=== PATIENT | female | born 1950 | race Caucasian/White ===

== ENCOUNTER → 2016-06-29 14:56 | Outpatient (CLI) | payer MEDICARE ==
[2015-10-19 10:39] VITALS: BMI 14.5
[~2016-06-29 14:56] MED LIST: BROVANA15 MCG/2 M INH; COMBIVENT RESPIM4 GM INH; DALIRESP500 MCG PO; FLORANEX / LACT1 TAB PO; FUROSEMIDE20 MG PO; HYDROCODON-ACE1 EAC9 PO; K-DUR20 MEQ PO; KLONOPIN1 MG PO; LEVAQUIN500 MG PO; MUCINEX600 MG PO; NEURONTIN 300300 MG PO; NICODERM C1 PATCH .3 TRANSDERM; PEPCID20 MG PO; PREDNISONE20 MG PO; PULMICORT0.5 MG/21 UPD; SENOKOT-S TABLE1 TAB PO; SINGULAIR10 MG PO; SPIRIVA18 MCG INH
[2016-06-29 15:38] LABS: BASOPHILS 0.5 % (0-2); EOSINOPHILS 2.9 % (0-7); HEMATOCRIT 45.4 % (36.0-48.0); HEMOGLOBIN 14.9 g/dL (12-16); LYMPHOCYTES 41.1 % (15-50); MCH 32.8 pg (26.0-34.0); MCHC 32.8 g/dL (31.0-37.0); MEAN PLATELET VOLUME 9.8 fL (7.4-10.4); MONOCYTES 7.7 % (2-11); NEUTROPHILS 47.8 % (40-80); PLATELET COUNT 212 10x3/uL (130-400); RBC 4.54 10x6/uL (4.00-5.40); RDW 13.6 % (11.5-14.5); WBC 6.1 10x3/uL (4.8-10.8)
[2016-06-29 15:57] LABS: ALBUMIN 3.4 g/dL (3.4-5.0); ALKALINE PHOSPHATASE 134 U/L (46-116); ALT (SGPT) 21 U/L (10-68); BILIRUBIN - TOTAL 0.23 mg/dL (0.2-1.3); CALC OSMOLALITY 276 mosm/kg (275-300); CALCIUM 8.9 mg/dL (8.5-10.1); CARBON DIOXIDE 34.1 mmol/L (21.0-32.0); CHLORIDE - SERUM 101 mmol/L (98-107); CREATININE - SERUM 0.7 mg/dL (0.6-1.3); GLUCOSE 103 mg/dL (74-106); PROTEIN - SERUM 6.8 g/dL (6.4-8.2); SODIUM 140 mmol/L (136-145); UREA NITROGEN 6 mg/dL (7-18); eGFR NON AFRICAN AMERICAN 90 mL/min (90-120)
== END | disposition home or self-care (01) ==
LOC: D.LAB 06-23 08:00
PROVIDERS: Internal Medicine Gastroenterology
DX: K59.09 Other constipation (principal); R63.0 Anorexia; R10.31 Right lower quadrant pain

== ENCOUNTER → 2017-11-01 10:27 | Outpatient (CLI) | payer MEDICARE ==
[2015-10-19 10:39] VITALS: BMI 14.5
== END | disposition home or self-care (01) ==
LOC: D.CT 10:27
DX: R22.1 Localized swelling, mass and lump, neck (principal)

== ENCOUNTER → 2017-12-15 10:33 | Outpatient (CLI) | payer MEDICARE ==
[2015-10-19 10:39] VITALS: BMI 14.5
== END | disposition home or self-care (01) ==
LOC: D.RT 10:33
DX: J44.9 Chronic obstructive pulmonary disease, unspecified (principal)

== ENCOUNTER 2018-01-16 18:59 | Observation (INO) | payer MEDICARE ==
[~2018-01-16] VITALS: Ht 160 cm; Wt 47.1 kg
--- NOTE | ~2018-01-16 | CN ---
PATIENT NAME:KAVIN PATE MEDICAL RECORD: [id number] : 54 LOCATION:D.[facility] D.2120 ADMIT DATE: 01/16/18 ACCOUNT: [id number] CONSULTING PHYSICIAN: DARIANA VALLE MD REFERRING PHYSICIAN: BLANKA LIND MD DATE OF CONSULTATION: 01/17/2018 HISTORY OF PRESENT ILLNESS: A 67-year-old female with known history of coronary artery disease. She has a history of obstructive pulmonary disease as well as previous long-term tobacco use, has been having marked dyspnea with chest tightness and pressure, had a previous negative noninvasive workup; however, symptomatologies continued during this time. Also, has had cardiac arrhythmias in the past with both PACs and PVCs, questionable SVT. We are asked to see her concerning her cardiovascular status. PAST MEDICAL HISTORY: Includes a history of obstructive pulmonary disease. MEDICATIONS: Include Singulair 10 mg p.o. q.h.s., prednisone on a tapering dose, Combivent 1 puff q.i.d., albuterol b.i.d. ALLERGIES: Include PENICILLIN, MUCINEX, BACLOFEN, TIZANIDINE. REVIEW OF SYSTEMS: The patient reports easy bruising but reports no swollen glands. The patient reports no fever, no night sweats, no significant weight gain, no significant weight loss. No significant exercise tolerance. The patient reports no dry eyes, no irritation, no vision change. Patient reports no difficulty hearing and no ear pain. Patient reports no frequent nose bleeds or nose and sinus problems. Patient reports on arm pain on exertion. No shortness of breath while lying down. No history of heart murmur. Patient reports no cough, no wheezing or coughing up blood. Patient reports no abdominal pain, no vomiting. Normal appetite. No diarrhea and not vomiting blood. No nausea and no constipation. Patient reports no incontinence. No difficulty urinating. No hematuria. No increased frequency. Patient reports no muscle aches. No weakness, no arthralgias, no back pain. No swelling of the extremities. Patient reports no abnormal mole, no jaundice, no rashes. Reports no loss of consciousness. No weakness and no numbness. No seizures, dizziness, or headaches. The patient reports no depression, no sleep disturbance, feeling safe in a relationship and no alcohol abuse. Patient reports on fatigue. Reports no runny nose or sinus pressure. No itching, no hives, and no frequent sneezing. PHYSICAL EXAMINATION: GENERAL: Pleasant female in no acute distress, appears stated age. VITAL SIGNS: Blood pressure 102/61, pulse 90 and regular, occasional extrasystole. HEENT: Normocephalic, atraumatic. NECK: No bruits noted, no JVD. HEART: Distant, regular. No gallops noted. LUNGS: Prolonged expiratory phase, few expiratory wheezes. ABDOMEN: Soft, nontender. EXTREMITIES: Pulses are preserved, 2+ with no edema. DIAGNOSTIC DATA: ECG shows nonspecific ST-T changes. IMPRESSION: Difficult to delineate how much of this is angina versus CONSULT REPORT [id number] KAVIN PATE obstructive pulmonary disease; however, given rapid course and history of cardiomyopathy in the past, plan for diagnostic intervention based as above. TRANSINT:[id number] Voice Confirmation ID: [id number] DOCUMENT ID: [id number] DARIANA VALLE MD at 1150 CC: [id number] DICTATION DATE: 01/17/18843 AERIAL SPRAYER: 01/17/18 0947 ADM IN [facility] [address] [id number]
--- NOTE | ~2018-01-16 | OP ---
PATIENT NAME: KAVIN PATE MEDICAL RECORD: [id number] :54 LOCATION:D.M2 D.2120 ADMISSION DATE:01/16/18 SURGEON: DARIANA VALLE MD DATE OF OPERATION: 01/17/2018 PROCEDURE: Left heart catheterization, selective coronary angiography, right femoral artery approach. CATHETERS: A 5-Turkish sheath, 5/4 left and right Geovanna, 5/4 pig. The procedure was well tolerated. The patient returned to the henson, sheath removed FINDINGS: Left ventriculography in 30-degree DAILEY view: Normal wall motion, normal systolic function. CORONARY ANATOMY: LEFT MAIN: Left main is free of disease. LAD: LAD is free of disease in the diagonal system. CIRCUMFLEX: Free of disease in the marginal system. RIGHT CORONARY ARTERY: Dominant artery, gives rise to PDA and it shows diffuse stenosis of about 80%. IMPRESSION: Single-vessel disease involving the right coronary. PLAN: Intervention momentarily. DESCRIPTION OF PROCEDURE: A 5-Turkish sheath was exchanged for a 6-Turkish sheath. Hockey stick one guide catheter provided excellent guide catheter support. A 300-cm Whisper wire was placed across the 80% stenosis ____ down this portion of vessel. Stent deployed was a 3.0 x 18 mm Integrity nondrug-eluting stent up to 14 atmospheres for 45 seconds. Final angiography shows excellent resolution of 80% stenosis, no significant residual. JASMIN flow was 3 throughout the procedure. Integrilin was used during the case. Sheath was closed with ExoSeal device. Plavix was loaded in the lab. TRANSINT:[id number] Voice Confirmation ID: [id number] DOCUMENT ID: [id number] DARIANA VALLE MD at 1407 CC: [id number] DICTATION DATE: 01/17/18 1248 OUTSIDE OPERATOR: 01/17/18 1414 DIS IN 01/19/18 [place] [id number] [place] [id number]
--- NOTE | ~2018-01-16 | HEMODYNAMI ---
PATIENT:KAVIN PATE MEDICAL RECORD: [id number] : 54 LOCATION:[facility] D.2120 ADMISSION DATE: 01/16/18 Generatedon:01/17/201812:43 Patient name: KAVIN PATE Patient #: [id number] SSN: : 1950 Date of study: 01/17/2018 Page: Of Hemodynamic Procedure Report Patient Data Patient Demographics Procedure consent was obtained First Name: KAVIN Gender: Female Last Name: RIO : 1950 [facility] Initial: TEO Age: 67 year(s) Patient #: [id number] Race: Unknown Additional ID: [id number] Contact details Address: [address] [place] [address] State: [place] City: [place] Zip code: [address] Past Medical History Allergies Allergen Reaction Date Comments Reported Penicillins 01/17/2018 Other allergy 01/17/2018 baclofen, mucinex, zanaflex Admission Admission Data Admission Date: 01/16/2018 Admission Time: 20:36 Room #: D.2120 Procedure Procedure Types Cath Procedure Diagnostic Procedure [facility] w/Coronaries Sedation Charges Moderate Sedation up to 15 minutes PCI Procedure Coronary Stent Coronary Stent Initial Procedure Description Procedure Date Procedure Date: 01/17/2018 Procedure Start Time: 12:24 Procedure End Time: 12:42 Procedure Staff Name Function Darian Lowe MD Performing Physician Elaine Barrett RT Monitor Ryann Vaz RN Nurse Richard Merchant RT Scrub Procedure Data Cath Procedure Fluoroscopy Diagnostic fluoroscopy Total fluoroscopy Time: 2.7 time: 2.7 min min Diagnostic fluoroscopy Total fluoroscopy dose: 146 dose: 146 mGy mGy Contrast Material Contrast Material Type Amount (ml) Isovue 300 111 Entry Location Entry Primary Successful Side Size Upsize Upsize Entry Closure Succes sful Closure Location (Fr) 1 (Fr) 2 (Fr) Remarks Device Remarks Femoral Right 5 Fr 6 Fr Exoseal artery Short Estimated blood loss: 10 ml Diagnostic catheters Device Type Used For End Catheter Placement Medtronic Dexterity 5Fr Left Coronary JL 4.0 catheter (NO COST Angiography SUPPLY) Medtronic Dexterity 5Fr Right Coronary 3DRC catheter (NO COST Angiography SUPPLY) Medtronic Dexterity 5Fr LV Angiography Pigtail catheter(NO COST SUPPLY) Procedure Complications No complications Procedure Medications Medication Administration Route Dosage Oxygen etCO2 Nasal cannula 2 l/min Heparin Flush Bag added to field 2 bags (1000units/500ml NS) 0.9% NaCl I.V. 100 ml/hr Lidocaine 2% added to field 20 Fentanyl I.V. 50 mcg Versed I.V. 2 mg Heparin Bolus I.V. 4000 units Integrilin (Bolus I.V. 4 ml 2mg/ml) Versed I.V. 1 mg Plavix P.O. 600 mg Hemodynamics Rest Heart Rate: 82 (bpm) Pressure Samples Time Site Value (mmHg) Purpose Heart Use Rate(bpm) 12:30 LV 96/0,5 EDP 86 12:31 AO 100/46(71) Pullback 88 12:31 LV 93/1,5 Pullback 88 Gradients Valve Time Site 1 Site 2 Mean SEP/DFP Peak To Heart Use (mmHg) (sec/min) Peak Rate (mmHg) (bpm) Aortic 12:30 LV AO 86 Aortic 12:31 LV AO 0 6 0 88 93/1,5 100/46(71) Calculations Valve P-P Mean Valve Index Valve Source Name Gradient Area Flow (cm2) Aortic 0 0 0 0 Snapshots Pre Cath Intra NCS Post Cath Vital Signs Time Heart Resp SPO2 etCO2 NIBP (mmHg) Rhythm Pain Sedation Rate (ipm) (%) (mmHg) Status Level (bpm) 12:13:52 85 18 98 25.5 128/77(95) NSR 0 (11) 10(A) , No pain 12:17:58 78 17 99 31.5 110/74(95) NSR 0 (11) 10(A) , No pain 12:22:00 78 17 100 29.3 124/70(102) NSR 0 (11) 10(A) , No pain 12:26:07 80 16 98 24 110/66(89) NSR 0 (11) 10(A) , No pain 12:30:11 85 21 98 30 106/62(85) NSR 0 (11) 10(A) , No pain 12:34:15 84 26 98 28.5 102/57(81) NSR 0 (11) 10(A) , No pain 12:38:17 88 35 98 29.3 98/59(80) NSR 0 (11) 10(A) , No pain 12:42:18 85 12 98 28.6 93/57(76) NSR 0 (11) 10(A) , No pain Medications Time Medication Route Dose Verified Delivered Reason Notes Effectiveness by by 12:16:07 Oxygen etCO2 2 Darian Ryann Per physician Nasal l/min St Franky Vaz cannula MD MARQUES 12:16:15 Heparin Flush added 2 Darian Ryann used for Bag to bags ChrissyFranky Vaz procedure (1000units/500ml field MD MARQUES NS) 12:16:24 0.9% NaCl I.V. 100 Darian Ryann Per physician ml/hr St Franky Vaz MD, RN 12:20:44 Lidocaine 2% added 20ml Darian Marianoory for local to vial [place] [facility] anesthetic field MD FRASER 12:21:41 Fentanyl I.V. 50 Darian Ryann for sedation mcg [facility] Franky Vaz MD, RN 12:21:50 Versed I.V. 2 mg Darian Ryann for sedation St Franky Vaz MD, RN 12:31:44 Heparin Bolus I.V. 4000 Darian Ryann for verif ied units ChrissyFranky Vaz anticoagulation with Dr. MD MARQUES Vanoss 12:34:15 Integrilin I.V. 4 ml Darian Ryann for waste d (Bolus 2mg/ml) St Franky Vaz anticoagulation 6mL MD MARQUES 12:34:50 Versed I.V. 1 mg Darian Ryann for sedation St Franky Vaz MD, RN 12:39:49 Plavix P.O. 600 Darian Ryann for mg [facility] Franky Vaz antiplatelet MD MARQUES therapy Procedure Log Time Note 11:50:59 Time tracking: Regular hours (M-F 7:00 - 5:00) 11:51:03 Plan of Care:Hemodynamics will remain stable., Cardiac rhythm will remain stable., Comfort level will be maintained., Respiratory function will remain adequate., Patient/ family verbilizes understanding of procedure., Procedure tolerated without complication., Recovers from procedure without complications.. 11:52:21 Richard BLACKMON(R) sent for patient. Start room use. 12:00:24 Patient received from PCU to CCL 3 Alert and oriented. Tansferred to table in Supine position. 12:00:25 Warm blankets applied, and gia hugger turned on for patient comfort. 12:00:25 Correct patient and procedure confirmed by team. 12:00:27 Signed procedure consent form obtained from patient. 12:00:27 ECG and BP/O2 sat monitors applied to patient. 12:00:28 Full Disclosure recording started 12:12:46 Vital chart was started 12:13:01 Rhythm: sinus rhythm 12:13:08 H&P Date Dictated: 01/17/2018 Within 30 days and on chart.. 12:13:09 Pre-procedure instructions explained to patient. 12:13:09 Pre-op teaching completed and patient verbalized understanding. 12:13:12 Family in waiting room. 12:13:14 Patient NPO since Midnight. 12:13:21 Patient allergic to Penicillins 12:13:50 Patient allergic to Other allergybaclofen, mucinex, zanaflex 12:13:53 Is the patient allergic to Iodine/contrast media? No. 12:13:54 Is patient on blood thinner?No 12:13:56 Patient diabetic? No. 12:13:59 Previous problem with sedation/anesthesia? No ? 12:14:00 Snore? No 12:14:01 Sleep apnea? No 12:14:02 Deviated septum? No 12:14:02 Opens mouth fully? Yes 12:14:03 Sticks out tongue? Yes 12:14:06 Airway obstruction? Yes ? 12:14:09 Dentures? No ? 12:14:12 Pre procedure: right dorsailis pedis pulse 2+ Normal; easily identifiable; not easily obliterated 12:14:14 Patient pain scale 0/10 ?. 12:14:26 IV left hand D/C'd due to infiltration. 12:16:07 Oxygen 2 l/min etCO2 Nasal cannula was administered by Ryann Vaz RN; Per physician; 12:16:15 Heparin Flush Bag (1000units/500ml NS) 2 bags added to field was administered by Ryann Vaz RN; used for procedure; 12:16:24 0.9% NaCl 100 ml/hr I.V. was administered by Ryann Vaz RN; Per physician; 12:20:44 Lidocaine 2% 20ml vial added to field was administered by Darian Lowe MD; for local anesthetic; 12:21:02 IV started by Ryann Vaz RN inright forearm with a 22 gauge IV catheter with 0.9% NaCl at KVO. 12:21:08 Baseline sample Acquired. 12:21:13 Lab results completed and on chart. 12:21:16 Right groin area was prepped with chlora-prep and draped in sterile fashion 12::17 Alarms reviewed by R. N. 12::18 Sharps counted by scrub and verified by R.N. 12:: Final Timeout: patient, procedure, and site verified with staff and physician. All members of the team are in agreement. 12:: Right groin site verified by team. 12::23 Physical assessment completed. ASA score P 2 - A patient with mild systemic disease as per Darian Lowe MD. 12::26 Sedation plan: IV Moderate Sedation Medication:Versed, Fentanyl 12::41 Fentanyl 50 mcg I.V. was administered by Ryann Vaz RN; for sedation; 12::50 Versed 2 mg I.V. was administered by Ryann Vaz RN; for sedation; 12:22:03 ACIST Syringe (24936) opened to sterile field. 12:22:03 Bag Decanter (2002S) opened to sterile field. 12:22:04 Medline Cath Pack ([id number]) opened to sterile field. 12:22:04 DIAGNOSTIC WIRE .035 260cm J wire (183729) opened to sterile field. 12:22:05 ACIST Hand Control (80323) opened to sterile field. 12:22:06 ACIST Manifold (11741) opened to sterile field. 12:22:07 Tegaderm 4 x 4 (1626W) opened to sterile field. 12:22:14 SHEATH 5FR [place] (EKN757) opened to sterile field. 12:24:22 Zero performed for pressure channel P1 12:24:24 Procedure started. 12:24:27 Local anesthetic to right femoral artery with Lidocaine 2% by Darian Lowe MD.INITIAL ACCESS ONLY 12:24:39 A 5 Fr sheath was inserted into the Right Femoral artery 12:25:34 A LED Optics Dexterity 5Fr JL 4.0 catheter (NO COST SUPPLY) was advanced over the wire and used for Left Coronary Angiography. 12:27:27 Catheter removed. 12:27:49 A Medtronic Dexterity 5Fr 3DRC catheter (NO COST SUPPLY) was advanced over the wire and used for Right Coronary Angiography. 12:29:18 Catheter removed. 12:30:03 A Medtronic Dexterity 5Fr Pigtail catheter(NO COST SUPPLY) was advanced over the wire and used for LV Angiography. 12:30:24 LV gram done using DAILEY 12:: Injector settings: Ml/sec: 10, Volume: 20, 12:30:28 LV hemodynamics recorded. 12:31:07 EF : 55 % 12:31:37 Catheter removed. 12:31:44 Heparin Bolus 4000 units I.V. was administered by Ryann Vaz RN; for anticoagulation; verified with Dr. Mosqueda 12:31:46 GUIDE 6FR HS I SH catheter ([id number]) opened to sterile field. 12:32:00 INFLATOR Merit BasixCompak (UD9039) opened to sterile field. 12:32:04 WHISPER 300cm guide wire ([id number]) opened to sterile field. 12:32:14 SHEATH 6FR [place] (TBY653) opened to sterile field. 12:32:33 Sheath upsized to a 6 Fr Short. 12:33:57 6 Fr HSI SH guide catheter was inserted over the wire 12:34:10 WHISPER wire advanced. 12:34:15 Integrilin (Bolus 2mg/ml) 4 ml I.V. was administered by Ryann Vaz RN; for anticoagulation; wasted 6mL 12:34:50 Versed 1 mg I.V. was administered by Ryann Vaz RN; for sedation; 12:36:37 Place stent Inflation Number: 1 A INTEGRITY OTW 2.5 X 18 stent ([id number]) was prepped and advanced across the Mid RCA. The stent was deployed at 14 MUSA for 0:24 (min:sec). 12:37:04 Stent catheter was removed intact over wire. 12:37:04 Wire removed. 12:37:05 Guide catheter removed. 12:37:12 Sheath removed intact; hemostasis achieved with Exoseal to the Right Femoral artery. 12:37:18 EXOSEAL 6Fr (EX600) opened to sterile field. 12:37:20 Procedure ended.(Physican Out) 12:37:31 Fluoroscopy time 02.70 minutes. 12:37:36 Fluoroscopy dose: 146 mGy 12:37:36 Flurop Dose total: 146 12:37:55 Contrast amount:Isovue 300 111ml. 12:37:56 Sharps counted by scrub and verified by R.N. 12:37:57 Insertion/operative site no bleeding no hematoma. 12:38:00 Post-op/insertion site Right Femoral artery dressed using a 4 x 4 and Tegaderm. 12:38:33 Post right femoral artery:stable, clean and dry 12:38:34 Post Procedure Pulses reassessed and unchanged 12:38:36 Post-procedure physical assessment completed. ASA score P 2 - A patient with mild systemic disease as per Darian Lowe MD. 12:38:39 Post procedure rhythm: sinus rhythm 12:39:22 Estimated blood loss: 10 ml 12:39:24 Post procedure instruction explained to patient.Patient verbalizes understanding. 12:39:24 Patient needs reinforcement of post procedure teaching. 12:39:29 Procedure type changed to Cath procedure, Diagnostic procedure, LHC, LHC w/Coronaries, Sedation Charges, Moderate Sedation up to 15 minutes, PCI procedure, Coronary Stent, Coronary Stent Initial 12:39:44 Procedure Complication : No complications 12:39:46 See physician's report for complete and final results. 12:39:49 Plavix 600 mg P.O. was administered by Ryann Vaz RN; for antiplatelet therapy; 12:40:25 Procedure and supply charges have been captured, reviewed, submitted and are correct. 12:41:43 Vital chart was stopped 12:41:48 Report given to PCU. 12:41:51 Patient transfered to PCU with Bed. 12:42:03 Procedure ended. 12:42:03 Full Disclosure recording stopped 12:42:09 End room use (Document Last) Intervention Summary Intervention Notes Time ActionType Lesion and Equipment Action# Pressure Duration Attributes Used 12:36:37 Place stent Mid RCA INTEGRITY 1 14 00:24 OTW 2.5 X 18 stent ([id number]) Device Usage Item Name Manufacture Quantity Catalog Hospital Part Current Minimal Lot# / Number Charge Number Stock Stock Serial# Code ACIST Acist 1 36232 787084 014173 869889 20 Telera (05494Clay.io Bag Microtek 1 2001S 006638 45550 569642 5 Sendio Inc. (2001S) Medline Medline 1 [id number] 353569 41393 914592 5 Cath Pack ([id number]) DIAGNOSTIC St Abel 1 714426 187704 827232 798858 30 WIRE .035 260cm J wire (853290) ACIST Hand Acist 1 78530 989133 506693 393745 5 Control Medical (18664) Systems Inc ACIST Acist 1 70842 712478 582056 611956 5 Manifold Medical (94889) Systems Inc Tegaderm 4 3M 1 1626W 127016 220414 100762 5 x 4 (1626W) SHEATH 5FR Terumo 1 YUS170 624167 682982 545019 40 [place] (XFT151) Medtronic Medtronic 1 [id number] 136288 399255 5 Dexterity 5Fr JL 4.0 catheter (NO COST SUPPLY) Medtronic Medtronic 1 [id number] 420162 696375 5 Dexterity 5Fr 3DRC catheter (NO COST SUPPLY) Medtronic Medtronic 1 [id number] 254772 030554 5 Dexterity 5Fr Pigtail catheter(NO COST SUPPLY) GUIDE 6FR Medtronic 1 [id number] 737084 35634 065129 1 HS I SH catheter ([id number]) INFLATOR [facility] 1 [id number] 210330 655616 256661 15 [facility] BasixCompak (PQ0484) WHISPER [place] 1 [id number] 367962 623943 766404 5 300cm guide Vascular wire ([id number]) SHEATH 6FR Terumo 1 YHP037 352426 301688 986068 40 [place] (CYN393) INTEGRITY Medtronic 1 [id number] 603552 342097 5 [id number] OTW 2.5 X 18 stent ([id number]) EXOSEAL 6Fr Cardinal 1 EX600 571227 779984 674992 10 (EX600) Health Signature Audit [place] Stage Time Signature Unsigned Intra-Procedure 01/17/2018 Elaine 12:42:57 PM Counts RT(R) Signatures Monitor : Elaine Signature : Counts RT Date : Time : [place] [address] [place] [address]
[2018-01-16] MEDS ORDERED: ADVAIR HFA [SP]12 GM INH (19:11)
[2018-01-16] MEDS ORDERED: VENTOLIN HFA18 GM INH (19:12)
[2018-01-16 19:30] LABS: BASOPHILS 0.4 % (0-2); EOSINOPHILS 3.9 % (0-7); HEMATOCRIT 40.4 % (36.0-48.0); HEMOGLOBIN 12.9 g/dL (12-16); IMMATURE GRANULOCYTES 0.9 % (0-5); LYMPHOCYTES 20.9 % (15-50); MCH 31.5 pg (26.0-34.0); MCHC 31.9 g/dL (31.0-37.0); MCV 98.5 fL (80.0-100.0); MEAN PLATELET VOLUME 9.1 fL (7.4-10.4); MONOCYTES 9.6 % (2-11); NEUTROPHILS 64.3 % (40-80); RDW 13.4 % (11.5-14.5); WBC 7.7 10x3/uL (4.8-10.8)
[2018-01-16 19:35] LABS: PLATELET COUNT 264 10x3/uL (130-400)
[2018-01-16 19:49] LABS: ALBUMIN 3.2 g/dL (3.4-5.0); ALKALINE PHOSPHATASE 117 U/L (46-116); ALT (SGPT) 28 U/L (10-68); BILIRUBIN - TOTAL 0.26 mg/dL (0.2-1.3); CALC OSMOLALITY 281 mosm/kg (275-300); CALCIUM 8.9 mg/dL (8.5-10.1); CARBON DIOXIDE 33.1 mmol/L (21.0-32.0); CHLORIDE - SERUM 104 mmol/L (98-107); CREATININE - SERUM 0.6 mg/dL (0.6-1.3); GLUCOSE 109 mg/dL (74-106); POTASSIUM - SERUM 3.9 mmol/L (3.5-5.1); PROTEIN - SERUM 7.2 g/dL (6.4-8.2); SODIUM 142 mmol/L (136-145); UREA NITROGEN 8 mg/dL (7-18); eGFR NON AFRICAN AMERICAN > 90 mL/min (90-120)
[2018-01-16 20:00] VITALS: BP 132/85
[2018-01-16 20:23] LABS: PRO BNP 167 pg/mL (0-125)
[2018-01-16 20:28] LABS: TROPONIN-I < 0.017 ng/mL (0.000-0.060)
[2018-01-16 22:02] VITALS: BP 108/68; BMI 17.4
[2018-01-17 01:15] VITALS: BP 104/57
[2018-01-17 04:45] VITALS: BP 102/61
[2018-01-17 08:47] VITALS: BP 104/60
[2018-01-17 11:34] VITALS: BP 103/62
[2018-01-17 11:58] LABS: BASOPHILS 0 % (0-2); EOSINOPHILS 0 % (0-7); HEMATOCRIT 37.1 % (36.0-48.0); HEMOGLOBIN 12.1 g/dL (12-16); IMMATURE GRANULOCYTES 0.8 % (0-5); MCH 31.4 pg (26.0-34.0); MCHC 32.6 g/dL (31.0-37.0); MCV 96.4 fL (80.0-100.0); MEAN PLATELET VOLUME 9.2 fL (7.4-10.4); MONOCYTES 0.8 % (2-11); NEUTROPHILS 88.4 % (40-80); PLATELET COUNT 243 10x3/uL (130-400); RBC 3.85 10x6/uL (4.00-5.40); RDW 12.8 % (11.5-14.5); WBC 4.9 10x3/uL (4.8-10.8)
[2018-01-17 12:08] LABS: CALCIUM 9.6 mg/dL (8.5-10.1); CARBON DIOXIDE 31.7 mmol/L (21.0-32.0); CHLORIDE - SERUM 103 mmol/L (98-107); CREATININE - SERUM 0.6 mg/dL (0.6-1.3); GLUCOSE 133 mg/dL (74-106); SODIUM 139 mmol/L (136-145); eGFR NON AFRICAN AMERICAN > 90 mL/min (90-120)
[2018-01-17 12:09] LABS: CALC OSMOLALITY 280 mosm/kg (275-300); POTASSIUM - SERUM 4.5 mmol/L (3.5-5.1); UREA NITROGEN 14 mg/dL (7-18)
[2018-01-17 13:23] VITALS: Ht 160 cm; Wt 47.1 kg
[2018-01-17 15:53] VITALS: BP 127/81
[2018-01-17 21:46] VITALS: BP 82/51
[2018-01-18 02:34] VITALS: BP 95/57
[2018-01-18 06:20] LABS: BASOPHILS 0 % (0-2); EOSINOPHILS 0 % (0-7); HEMATOCRIT 34.4 % (36.0-48.0); HEMOGLOBIN 11.1 g/dL (12-16); IMMATURE GRANULOCYTES 0.4 % (0-5); LYMPHOCYTES 4.6 % (15-50); MCH 31.1 pg (26.0-34.0); MCHC 32.3 g/dL (31.0-37.0); MCV 96.4 fL (80.0-100.0); MEAN PLATELET VOLUME 9.6 fL (7.4-10.4); MONOCYTES 2.5 % (2-11); NEUTROPHILS 92.5 % (40-80); PLATELET COUNT 258 10x3/uL (130-400); RBC 3.57 10x6/uL (4.00-5.40); RDW 13.2 % (11.5-14.5)
[2018-01-18 06:27] LABS: WBC 11.1 10x3/uL (4.8-10.8)
[2018-01-18 06:34] VITALS: BP 109/56
[2018-01-18 06:50] LABS: ALBUMIN 2.6 g/dL (3.4-5.0); ALKALINE PHOSPHATASE 89 U/L (46-116); ALT (SGPT) 21 U/L (10-68); BILIRUBIN - TOTAL 0.18 mg/dL (0.2-1.3); CALC OSMOLALITY 283 mosm/kg (275-300); CALCIUM 8.7 mg/dL (8.5-10.1); CARBON DIOXIDE 30.5 mmol/L (21.0-32.0); CHLORIDE - SERUM 105 mmol/L (98-107); CREATININE - SERUM 0.6 mg/dL (0.6-1.3); GLUCOSE 137 mg/dL (74-106); POTASSIUM - SERUM 4.1 mmol/L (3.5-5.1); PROTEIN - SERUM 6.1 g/dL (6.4-8.2); SODIUM 141 mmol/L (136-145); UREA NITROGEN 14 mg/dL (7-18); eGFR NON AFRICAN AMERICAN > 90 mL/min (90-120)
[2018-01-18 08:54] VITALS: BP 110/53
[2018-01-18 11:00] VITALS: BP 119/70
[2018-01-18 15:00] VITALS: BP 114/63
[2018-01-18 22:21] VITALS: BP 102/68
[2018-01-19 00:54] VITALS: BP 140/76
[2018-01-19 05:32] VITALS: BP 103/61
[2018-01-19 05:52] LABS: BASOPHILS 0 % (0-2); EOSINOPHILS 0.1 % (0-7); HEMATOCRIT 33.3 % (36.0-48.0); HEMOGLOBIN 10.7 g/dL (12-16); IMMATURE GRANULOCYTES 0.6 % (0-5); LYMPHOCYTES 14.2 % (15-50); MCH 31.3 pg (26.0-34.0); MCHC 32.1 g/dL (31.0-37.0); MCV 97.4 fL (80.0-100.0); MEAN PLATELET VOLUME 9.4 fL (7.4-10.4); MONOCYTES 7.5 % (2-11); NEUTROPHILS 77.6 % (40-80); PLATELET COUNT 240 10x3/uL (130-400); RBC 3.42 10x6/uL (4.00-5.40); RDW 13.7 % (11.5-14.5); WBC 9.9 10x3/uL (4.8-10.8)
[2018-01-19 06:28] LABS: ALBUMIN 2.4 g/dL (3.4-5.0); ALKALINE PHOSPHATASE 81 U/L (46-116); ALT (SGPT) 17 U/L (10-68); BILIRUBIN - TOTAL 0.21 mg/dL (0.2-1.3); CALCIUM 8.4 mg/dL (8.5-10.1); CARBON DIOXIDE 30.3 mmol/L (21.0-32.0); CHLORIDE - SERUM 107 mmol/L (98-107); MAGNESIUM - SERUM 1.8 mg/dL (1.8-2.4); POTASSIUM - SERUM 4.1 mmol/L (3.5-5.1); PROTEIN - SERUM 5.8 g/dL (6.4-8.2); SODIUM 144 mmol/L (136-145); UREA NITROGEN 11 mg/dL (7-18); eGFR NON AFRICAN AMERICAN 76 mL/min (90-120)
[2018-01-19 06:31] LABS: CALC OSMOLALITY 284 mosm/kg (275-300); CREATININE - SERUM 0.8 mg/dL (0.6-1.3); GLUCOSE 83 mg/dL (74-106)
[2018-01-19 08:31] VITALS: BP 100/57
[2018-01-19] MEDS ORDERED: PLAVIX75 MG PO (11:02)
[2018-01-19 12:00] VITALS: BP 98/58
== END 2018-01-19 13:30 | disposition home or self-care (01) ==
LOC: D.ER 18:59 → OBSVTIME 20:36 → D.M2 20:36 → D.EDHOLD 20:36 → D.M2 21:17
PROVIDERS: Emergency Medicine; Family Medicine; Internal Medicine Interventional Cardiology
DX: I25.10 Atherosclerotic heart disease of native coronary artery without angina pectoris (principal); J44.9 Chronic obstructive pulmonary disease, unspecified; Z87.891 Personal history of nicotine dependence; M19.90 Unspecified osteoarthritis, unspecified site; G89.29 Other chronic pain; M54.2 Cervicalgia

== ENCOUNTER → 2018-11-01 12:13 | Outpatient (CLI) | payer MEDICARE ==
[2018-01-17 13:23] VITALS: BMI 17.3
[~2018-11-01 12:13] MED LIST changes: +ADVAIR HFA [SP]12 GM INH; +PLAVIX75 MG PO; +VENTOLIN HFA18 GM INH
== END | disposition home or self-care (01) ==
LOC: D.RT 12:13
PROVIDERS: ATTEND Internal Medicine Pulmonary Disease
DX: J44.9 Chronic obstructive pulmonary disease, unspecified (principal)

== ENCOUNTER → 2019-03-21 10:34 | Outpatient (CLI) | payer MEDICARE ==
[2018-01-17 13:23] VITALS: BMI 17.3
--- NOTE | 2019-03-23 13:25 | EC ---
PATIENT:KAVIN PATE DATE OF SERVICE: 03/21/19 SEX: F MEDICAL RECORD: [id number] DATE OF : 54 LOCATION:D[facility] AGE OF PATIENT: 68 ADMISSION DATE: 03/21/19 REFERRING PHYSICIAN: INTERPRETING PHYSICIAN: DARIANA VALLE MD ECHOCARDIOGRAM REPORT ECHO CHARGES 4 ECHO COMPLETE Date: 03/21/19 CLINICAL DIAGNOSIS: CAD/ASSESS TRICUSPID REGURG ECHOCARDIOGRAPHIC MEASUREMENTS (adult normal given) AC root (d.<3.7cm) 2.7 cm LV Septum d (<1.2 cm> 1.3 cm Valve Excursion 1.0 cm LV Septum (systole) 1.5 cm Left Atria (s.<4.0cm> 2.8 cm LVPW d(<1.2cm) 1.3 cm RV (d.<2.3cm) 3.1 cm LVPW (sytole) 1.5 cm LV diastole(<5.6CM) 4.2 cm MV E-F(>70mm/sec) cm LV systole 2.7 cm LVOT Diameter 1.6 cm MV exc.(>10mm) 1.5 cm Est.ejection fraction (50-75%) % DOPPLER: LVIT cm/sec A 120.0cm/sec E 89.0 cm/sec LA cm/sec RVSP 20 mmHg LVOT 106 cm/sec AOP1/2T m/s Asc. Ao 141 cm/sec RVOT 84 cm/sec RA cm/sec PA 100 cm/sec AV Gradient Peak 7.93 mmHg AV Mean 4.51 mmHg AV Area 1.8 cm MV Gradient Peak 5.47 mmHg MV Mean 2.09 mmHg MV Area cm COMMENTS: Assessment Manager: 2 ELYSE BURRIS Motor Vehicle Lecturer: 3 Dr. Mosqueda TAPE# PACS Pericardial Effusion N DATE OF SERVICE: Adequate 2D, color flow imaging, spectral Doppler, and M-Mode. LVH is present. LV internal dimensions are normal. Wall motion is normal. EF is greater than or equal to 55%. Aortic valve is tricuspid. No evidence of stenosis by Doppler interrogation. Left atrium is normal at 3.3. Mitral shows no prolapse. Trace MR. Right-sided chambers are grossly normal. Trace TR. TRANSINT:[id number] Voice Confirmation ID: [id number] DOCUMENT ID: [id number] ECHOCARDIOGRAM REPORT [id number] KAVIN PATE GREGORY A MD at 1325 CC: [id number] DICTATION DATE: 03/21/19 141 RAWHIDE TRIMMER: 03/21/191940 DEP CLI 03/21/19 [facility] [address] [id number]
== END | disposition home or self-care (01) ==
LOC: D.HCCECHO 03-10 11:00
PROVIDERS: ATTEND Internal Medicine Interventional Cardiology
DX: I25.10 Atherosclerotic heart disease of native coronary artery without angina pectoris (principal)